=== PATIENT | male | born 1955 | race Hispanic/Latino ===

== ENCOUNTER 2019-03-13 08:14 | Outpatient (CLI) | payer BC | END 2019-03-13 08:15 | disposition home or self-care (01) | LOC: RAD 08:14 | DX: R10.9 Unspecified abdominal pain (principal); R91.1 Solitary pulmonary nodule ==

== ENCOUNTER 2019-03-14 12:24 | Observation (INO) | payer BC ==
[2019-03-14 12:33] VITALS: BMI 27.0
--- NOTE | 2019-03-14 13:16 | ED PDOC ---
Arrival/HPI - General Chief Complaint: Abnormal Labs Time Seen by Provider: 03/14/19 12:38 Historian: Patient, Spouse - History of Present Illness Time/Duration: > week Symptom Onset: Gradual Symptom Course: Resolved Severity Level: Mild Activities at Onset: Rest Associated Symptoms (Text): 03/14/19 13:13 Patient had lower abdominal pain last week after indulging in foods that he normally does not eat. He was seen by his PMD Dr. Banegas and sent for an outpatient CT scan of the chest abdomen and pelvis which he had yesterday. There was a right lower quadrant mass on the CT scan and the patient was directed to the emergency department today by Dr. Banegas. He reports that his symptoms have completely resolved. No abdominal pain nausea vomiting or diarrhea. He is not anorexic. No fever or chills. No cough congestion or URI. No weight loss. Past Medical History - Infectious Disease Hx of Infectious Diseases: None - Cardiac Hx CO: Yes (x 3 stents) Hx Hypertension: Yes - Pulmonary Other/Comment: heavy smoker - Neurological Hx Paralysis: No - Endocrine/Metabolic Hx Diabetes Mellitus Type 2: Yes - Hematological/Oncological Hx Blood Transfusions: No - Musculoskeletal/Rheumatological Hx Arthritis: Yes - Psychiatric Hx Emotional Abuse: No Hx Physical Abuse: No Hx Substance Use: No - Surgical History Hx Cardiac Catheterization: Yes Other/Comment: cardiac cath x 3 stents - Anesthesia Hx Anesthesia Reactions: No Hx Malignant Hyperthermia: No - Suicidal Assessment Feels Threatened In Home Enviroment: No Family/Social History - Physician Review Nursing Documentation Reviewed: Yes Family/Social History: Unknown Family HX Smoking Status: Heavy Smoker > 10 Cigarettes Daily Hx Alcohol Use: No Hx Substance Use: No Allergies/Home Meds Allergies/Adverse Reactions: Allergies No Known Allergies Allergy (Verified 03/14/19 12:33) Home Medications: Home Meds Medication Instructions Recorded Confirmed Atorvastatin [Lipitor] 40 mg PO DAILY 12/18/14 01/26/17 Aspirin [Adult Low Dose Aspirin EC] 81 mg PO DAILY 01/07/16 01/26/17 Dabigatran [Pradaxa] 150 mg PO DAILY 01/07/16 01/26/17 Metoprolol Succinate [Toprol Xl] 50 mg PO DAILY 01/07/16 01/26/17 MetFORMIN [glucOPHAGE] 1,000 mg PO BID 03/03/16 03/10/17 Clopidogrel [Plavix] 75 mg PO DAILY 01/22/16 01/22/16 SITagliptin [Januvia] 50 mg PO BID 01/26/17 01/26/17 Review of Systems - Physician Review All systems were reviewed & negative as marked: Yes - Review of Systems Constitutional: absent: Fatigue, Fevers Respiratory: absent: SOB, Cough, Wheezing Cardiovascular: absent: Chest Pain, Palpitations, Syncope Gastrointestinal: absent: Abdominal Pain, Constipation, Diarrhea, Nausea, Vomiting, Hematochezia, Hematemesis, Anorexia Genitourinary Male: absent: Dysuria, Frequency, Hematuria Neurological: absent: Headache, Dizziness, Focal Weakness Physical Exam Vital Signs Temp Pulse Resp BP Pulse Ox 03/14/19 12:35 98.3 F 69 18 196/104 H 98 Temperature: Afebrile Blood Pressure: Hypertensive Pulse: Regular Respiratory Rate: Normal Appearance: Positive for: Well-Appearing, Non-Toxic, Comfortable Pain Distress: None Mental Status: Positive for: Alert and Oriented X 3 - Systems Exam Head: Present: Atraumatic, Normocephalic Pupils: Present: PERRL Extroacular Muscles: Present: EOMI Conjunctiva: Present: Normal Mouth: Present: Moist Mucous Membranes Pharnyx: No: ERYTHEMA, EXUDATE, TONSILS ENLARGED Neck: Present: Normal Range of Motion Respiratory/Chest: Present: Clear to Auscultation, Good Air Exchange, Decreased Breath Sounds. No: Respiratory Distress, Accessory Muscle Use Cardiovascular: Present: Regular Rate and Rhythm, Normal S1, S2. No: Murmurs Abdomen: No: Tenderness, Distention, Peritoneal Signs, Rebound, Guarding Upper Extremity: Present: Normal Inspection. No: Cyanosis, Edema Lower Extremity: Present: Normal Inspection. No: Edema Neurological: Present: GCS=15, CN II-XII Intact, Speech Normal, Motor Func Grossly Intact Skin: Present: Warm, Dry, Normal Color. No: Rashes Psychiatric: Present: Alert, Oriented x 3, Normal Insight, Normal Concentration Medical Decision Making ED Course and Treatment: 03/14/19 13:[address] Banegas who reports that he sent the patient to the emergency department for admission and consultation with surgery infectious disease and pulmonary, all of which have been called for him. Disposition/Present on Arrival - Present on Arrival Any Indicators Present on Arrival: No History of DVT/PE: No History of Uncontrolled Diabetes: No Urinary Catheter: No History of Decub. Ulcer: No History Surgical Site Infection Following: None - Disposition Have Diagnosis and Disposition been Completed?: Yes Diagnosis: Right lower quadrant abdominal mass, Pneumonia, Hypertension Disposition: HOSPITALIZED Disposition Time: 13:57 Patient Plan: Observation Condition: GOOD
[2019-03-14 13:44] LABS: BASO # 0.08 K/mm3 (0.0-2.0); BASO % 1.1 % (0.0-3.0); EOS # 0.2 (0.0-0.7); EOS % 2.1 % (1.5-5.0); HEMOGLOBIN 15.1 g/dL (14.0-18.0); LYMPH # 2.2 (1.2-3.4); LYMPH % 30.2 % (22.0-35.0); MEAN CELL VOLUME 83.4 fl (80.0-105.0); MEAN CORPUSCULAR HEMOGLOBIN 28.2 pg (25.0-35.0); MEAN CORPUSCULAR HGB CONC 33.9 g/dl (31.0-37.0); MEAN PLATELET VOLUME 9.7 fl (7.0-11.0); MONO # 0.3 (0.1-0.6); MONO % 4.3 % (1.0-6.0); RBC 5.35 10^6/uL (3.5-6.1); WHITE BLOOD COUNT 7.2 10^3/uL (4.5-11.0)
[2019-03-14 13:53] LABS: ALB/GLOB RATIO 1.1 (1.1-1.8); ALBUMIN 4.2 g/dL (3.0-4.8); ALT/SGPT 28 U/L (7-56); AST/SGOT 21 U/L (17-59); BLOOD UREA NITROGEN 13 mg/dL (7-21); CALCIUM 9.9 mg/dL (8.4-10.5); GFR NON-AFRICAN AMERICAN > 60
[2019-03-14 14:04] LABS: TROPONIN I < 0.01 ng/mL
[2019-03-14 15:00] VITALS: O2SAT 97
--- NOTE | 2019-03-14 15:25 | CARD ---
APPROVED REPORT Date of service: 03/14/2019 EKG Measurement Heart [id number] <Conclusion> Normal sinus rhythm Left axis deviation T Inversion I,AVL,V5,V6 Correlate Clinically. Abnormal ECG
--- NOTE | 2019-03-14 15:39 | CP.PCM.CON ---
History of Present Illness - History of Present Illness History of Present Illness: General Surgery Consult Note for Dr. Nile Philip, PGY1 Reason for consult: RLQ mass This is a 63 year old male with PMH of HTN, HLD, CAD, NIDDM, NE, PTCA s/p 3 stents presenting to the hospital on recommendation by PMD for abnormal CT scan. 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 Patient states he was lifting heavy object two weeks ago and subsequently developed abdominal pain which lasted 3-4 days. Patient was seen by PMD at that time and had CTAP done earlier this week. Patient endorses loose stools over the last 3 days due to decreased appetite. He says he had colonoscopy approximately [address] Goodwin in [place] and was normal as per patient. Patient currently denies CP, SOB, fevers, chills, nausea, vomiting, numbness, tingling, swelling, weakness, back pain, abdominal pain, constipation, urinary complaints, hematuria, hematochezia, recent travel, recent sickness, and recent weight loss. 12 point ROS noted here, otherwise unremarkable. PMD: Dr. Banegas PMH: HTN, HLD, CAD, NIDDM, NE, PTCA s/p 3 stents on aspirin Sx: PTCA s/p 3 stents in 2009 Social: active smoker of 1/2 ppd for 40 years. Denies drug/alcohol use FH: CAD All: denies Past Patient History - Infectious Disease Hx of Infectious Diseases: None - Past Social History Smoking Status: Heavy Smoker > 10 Cigarettes Daily - CARDIAC Hx Heart Attack: Yes (x 3 stents) Hx Hypertension: Yes - PULMONARY Other/Comment: heavy smoker - NEUROLOGICAL Hx Paralysis: No - ENDOCRINE/METABOLIC Hx Diabetes Mellitus Type 2: Yes - HEMATOLOGICAL/ONCOLOGICAL Hx Blood Transfusions: No - MUSCULOSKELETAL/RHEUMATOLOGICAL Hx Arthritis: Yes - PSYCHIATRIC Hx Emotional Abuse: No Hx Physical Abuse: No Hx Substance Use: No - SURGICAL HISTORY Hx Cardiac Catheterization: Yes Other/Comment: cardiac cath x 3 stents - ANESTHESIA Hx Anesthesia Reactions: No Hx Malignant Hyperthermia: No Meds Allergies/Adverse Reactions: Allergies Allergy/AdvReac Type Severity Reaction Status Date / Time No Known Allergies Allergy Verified 03/14/19 16:04 Physical Exam - Constitutional Appears: Non-toxic, No Acute Distress - Head Exam Head Exam: ATRAUMATIC, NORMAL INSPECTION - Eye Exam Eye Exam: EOMI Pupil Exam: PERRL - ENT Exam ENT Exam: Mucous Membranes Moist - Neck Exam Neck exam: Positive for: Normal Inspection - Respiratory Exam Respiratory Exam: Clear to Auscultation Bilateral. absent: Accessory Muscle Use, Wheezes, Respiratory Distress - Cardiovascular Exam Cardiovascular Exam: +S1, +S2. absent: Tachycardia - GI/Abdominal Exam GI & Abdominal Exam: Normal Bowel Sounds, Soft. absent: Firm, Guarding, Mass, Rebound, Rigid, Tenderness Additional comments: Negative McBurney point tenderness globular abdomen - Extremities Exam Extremities exam: Positive for: normal inspection. Negative for: calf tenderness, tenderness - Back Exam Back exam: NORMAL INSPECTION - Neurological Exam Neurological exam: Alert, Oriented x3 - Psychiatric Exam Psychiatric exam: Normal Affect, Normal Mood - Skin Skin Exam: Normal Color, Warm Results - Vital Signs Recent Vital Signs: Last Vital Signs Temp 98.3 F 03/14/19 12:35 Pulse 64 03/14/19 14:59 Resp 18 03/14/19 14:59 BP 174/88 H 03/14/19 14:59 Pulse Ox 97 03/14/19 14:59 - Labs Result Diagrams: 03/14/19 13:31 03/14/19 13:31 Labs: Laboratory Results - last 24 hr 03/14/19 03/14/19 13:31 13:31 WBC 7.2 RBC 5.35 Hgb 15.1 Hct 44.6 MCV 83.4 MCH 28.2 MCHC 33.9 RDW 13.0 Plt Count 337 MPV 9.7 Neut % (Auto) 62.3 Lymph % (Auto) 30.2 [place] % (Auto) 4.3 Eos % (Auto) 2.1 Baso % (Auto) 1.1 Lymph # (Auto) 2.2 [place] # (Auto) 0.3 Eos # (Auto) 0.2 Baso # (Auto) 0.08 Absolute Neuts (auto) 4.50 Sodium 137 Potassium 4.9 Chloride 96 L Carbon Dioxide 33 Anion Gap 13 BUN 13 Creatinine 0.8 Est GFR ( Amer) > 60 Est GFR (Non-Af Amer) > 60 Random Glucose 208 H Calcium 9.9 Magnesium 1.9 Total Bilirubin 0.3 AST 21 ALT 28 Alkaline Phosphatase 92 Lactate Dehydrogenase 311 L Total Creatine Kinase 39 Troponin I < 0.01 Total Protein 8.1 Albumin 4.2 Globulin 3.8 Albumin/Globulin Ratio 1.1 Assessment & Plan - Assessment and Plan (Free Text) Assessment: This is a 63 year old male presenting to the hospital for abnormal CT abd/pelvis findings concerning for RLQ mass. 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 Dowd
[2019-03-14] MEDS ORDERED: Azithromycin 500MG/NS 250ml 500 MG/250 ML BAG IVPB SCH (15:45)
[2019-03-14] MEDS ORDERED: cefTRIAXone 1 gm 1 GM/100 ML BAG IVPB SCH (15:45)
[2019-03-14] MEDS ORDERED: Pneumococcal 23-Valent Vaccine IM ONE (18:32)
[2019-03-14] MEDS: Albuterol-Ipratrop 3 mg / 0.5 (3 ml) UD IH SCH (20:14)
[2019-03-14] MEDS: Insulin Reg-MEDIUM-Coverage SC SCH (22:08)
[2019-03-15] MEDS: Albuterol-Ipratrop 3 mg / 0.5 (3 ml) UD IH SCH ×2 (01:29→08:19)
--- NOTE | 2019-03-15 01:33 | HP ---
DATE OF EXAM: 03/14/2019 HISTORY OF PRESENT ILLNESS: I saw Mr. Haque in my office. He did not feel well. I did a CT scan of the chest, abdomen and pelvis. I was looking for a cancer. He has been not feeling well, losing some weight. His CT scan came back with a multifocal pneumonia in both lungs, also a right lower quadrant mass around the appendix, which could be cancer. He was not feeling well so he had come to the emergency room. He is being admitted for IV antibiotics for the pneumonia and evaluation of the right lower quadrant mass. He is a 63-year-old white man, not feeling well, had abdominal pain after indulging in a lot of bad foods, also had some lifting of things that were around the house. He has a right lower quadrant mass, multifocal pneumonia. PAST MEDICAL HISTORY: He has a history of OR and three stents, hypertension. He has got diabetes. SOCIAL HISTORY: He is a heavy, heavy smoker. ALLERGIES: NO KNOWN DRUG ALLERGIES. CURRENT MEDICATIONS: He takes Lipitor, aspirin, Pradaxa, metoprolol, Glucophage, Plavix and Januvia. REVIEW OF SYSTEMS: A little bit tired. No fevers. He is coughing. No shortness of breath or wheezing. He did have right lower quadrant pain but that kind of subsided. No constipation, diarrhea, nausea or vomiting. No blood. No problems urinating. No headache or dizziness. PHYSICAL EXAMINATION VITAL SIGNS: He has 98.3 temperature, 69 pulse, 18 respiratory rate, 196/104 blood pressure, which is kind high for him, I am not sure if he took his medications or not, and 98% O2 sat. GENERAL: He is well-appearing, nontoxic, comfortable. Alert and oriented x3. HEENT: Head is atraumatic, normocephalic. Extraocular muscles are intact. The throat is dry, a little bit red. NECK: Supple. No JVD. LUNGS: Decreased breath sounds bilaterally. Congestion in his cough, smokers cough for sure. HEART: Regular rate. Normal S1, S2. ABDOMEN: Soft, nontender, positive bowel sounds. No guarding, no rebound or CVA tenderness even though the right lower quadrant is soft. No palpable mass. EXTREMITIES: He has got a low edema of the lower extremities. NEUROLOGIC: GCS is 15. Cranial nerves II through XII grossly intact. Speech is normal. Alert and oriented x3. SKIN: Poor turgor, but warm and dry. LYMPHATICS: Thyroid midline. No palpable appreciable lymphadenopathy. LABORATORY DATA: A CT scan of the outpatient showed a right lower quadrant abdominal mass. ASSESSMENT AND PLAN: He has multifocal pneumonia, he has hypertension, he is a diabetic. He will have consults with Surgery, Infectious Disease and Pulmonary. Hopefully will improve quickly. Rc Banegas DO
[2019-03-15 07:25] LABS: HEMOGLOBIN 14.8 g/dL (14.0-18.0); MEAN CELL VOLUME 83.7 fl (80.0-105.0); MEAN CORPUSCULAR HEMOGLOBIN 27.4 pg (25.0-35.0); MEAN CORPUSCULAR HGB CONC 32.7 g/dl (31.0-37.0); MEAN PLATELET VOLUME 10.3 fl (7.0-11.0); RBC 5.4 10^6/uL (3.5-6.1); RED CELL DISTRIBUTION WIDTH 13.1 % (11.5-14.5); WHITE BLOOD COUNT 7.7 10^3/uL (4.5-11.0)
[2019-03-15 07:41] LABS: ALBUMIN 3.7 g/dL (3.0-4.8); ALT/SGPT 20 U/L (7-56); AST/SGOT 19 U/L (17-59); BLOOD UREA NITROGEN 13 mg/dL (7-21); CALCIUM 9.1 mg/dL (8.4-10.5); GFR NON-AFRICAN AMERICAN > 60
[2019-03-15 08:10] VITALS: PULSE 66; RESP 19; TEMP 98
[2019-03-15] MEDS: Insulin Reg-MEDIUM-Coverage SC SCH (08:10)
--- NOTE | 2019-03-15 08:15 | CP.PCM.PN ---
Subjective - Date & Time of Evaluation Date of Evaluation: 03/15/19 Time of Evaluation: 07:00 - Subjective Subjective: GENERAL SURGERY PROGRESS NOTE FOR DR. FRIAS Patient seen and examined at bedside. He denies abdominal pain. He is tolerating diet, denies nausea or vomiting. He had some diarrhea last night. He is asking when he can go home. Objective - Vital Signs/Intake and Output Vital Signs (last 24 hours): Temp Pulse Resp BP Pulse Ox 98.0 F 66 19 162/82 H 97 03/15/19 06:00 03/15/19 06:00 03/15/19 06:00 03/15/19 06:00 03/15/19 06:00 Intake and Output: 03/15/19 03/15/19 06:59 18:59 Intake Total 1020 Output Total 500 Balance 520 - Medications Medications: Current Medications Albuterol/Ipratropium (Duoneb 3 Mg/0.5 Mg (3 Ml) Ud) 3 ml IH [id number] [facility] Last Admin: 03/15/19 01:29 Dose: Not Given Amlodipine Besylate (Norvasc) 2.5 mg PO DAILY [facility] Aspirin (Ecotrin) 81 mg PO DAILY [facility] Atorvastatin Calcium (Lipitor) 40 mg PO DAILY [facility] Dabigatran (Pradaxa) 150 mg PO BID [facility]; Protocol Ceftriaxone Sodium (Rocephin 1 Gram Ivpb) 1 gm in 100 mls @ 100 mls/hr IVPB D AILY [facility]; Protocol Azithromycin (Zithromax 500mg In Ns) 500 mg in 250 mls @ 167 mls/hr IVPB DAILY [facility]; Protocol Insulin Human Regular (Humulin R Med) 0 units SC ACHS [facility]; Protocol Last Admin: 03/15/19 08:10 Dose: Not Given Metformin HCl (Glucophage) 1,000 mg PO BID [facility] Metoprolol Succinate (Toprol Xl) 50 mg PO DAILY [facility] Nicotine (Nicoderm Cq) 1 patch TD DAILY [facility] Last Admin: 03/14/19 18:49 Dose: Not Given Sitagliptin Phosphate (Januvia) 50 mg PO BID [facility] - Labs Labs: 03/15/19 06:30 03/15/19 06:30 - Constitutional Appears: Non-toxic, No Acute Distress - Head Exam Head Exam: ATRAUMATIC, NORMAL INSPECTION - Eye Exam Eye Exam: EOMI, Normal appearance - Respiratory Exam Respiratory Exam: NORMAL BREATHING PATTERN. absent: Respiratory Distress - Cardiovascular Exam Cardiovascular Exam: +S1, +S2 - GI/Abdominal Exam GI & Abdominal Exam: Soft. absent: Distended, Firm, Guarding, Rigid, Tenderness, Rebound - Neurological Exam Neurological Exam: Alert, Awake, Oriented x3 - Psychiatric Exam Psychiatric exam: Normal Affect, Normal Mood - Skin Skin Exam: Normal Color, Warm Assessment and Plan - Assessment and Plan (Free Text) Assessment: 63 year old male with PMHx of HTN, HLD, CAD, DM, OR s/p stents who has abnormal CT abd/pelvis findings concerning for RLQ mass. Possible appendiceal carcinoma vs walled off appendiceal abscess. 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 Nile Rincon PGY-4
[2019-03-15 08:20] LABS: URINE BILIRUBIN NEGATIVE (NEGATIVE); URINE BLOOD NEGATIVE (NEGATIVE); URINE GLUCOSE (UA) NEGATIVE (NEGATIVE); URINE LEUKOCYTE ESTERASE NEGATIVE Leu/uL (NEGATIVE); URINE PROTEIN NEGATIVE mg/dL (<30 mg/dL); URINE UROBILINOGEN 0.2 E.U./dL (<1 E.U./dL)
[2019-03-15 08:23] LABS: URINE APPEARANCE CLEAR (CLEAR); URINE COLOR YELLOW (YELLOW)
[2019-03-15] MEDS ORDERED: Metoprolol Succinate 50 mg XL Tab PO SCH (10:00)
[2019-03-15 10:08] VITALS: BP 158/82
--- NOTE | 2019-03-15 18:01 | CON ---
DATE: 03/15/2019 LOCATION: The patient is seen earlier today in room 366, bed 1. CHIEF COMPLAINT: The patient is seen earlier this morning, no complaints. He states that he had a CAT scan findings and that is why he has been admitted. HISTORY OF PRESENT ILLNESS: This is a 63-year-old male with diabetes mellitus, coronary artery disease, myocardial infarction, hyperlipidemia, hypertension, history of cardiac cath stent placement, colonoscopy 6 years ago, which was negative by Dr. Goodwin. HE HAS NO KNOWN ALLERGIES. Had a CAT scan as an outpatient, which showed an abdominal mass, also found multifocal pneumonia and thus referred to the emergency room and was admitted. The patient has no fevers, no chills. Has no cough, no shortness of breath, no pulmonary symptoms. REVIEW OF SYSTEMS: Reveals the patient's 12-point review of systems is performed. PAST MEDICAL HISTORY: Significant for diabetes, coronary artery disease, myocardial infarction, hyperlipidemia and hypertension. PAST SURGICAL HISTORY: Significant for cardiac catheterization with stent placement, colonoscopy 6 years ago which at that time was negative by Dr. Goodwin. ALLERGIES: THE PATIENT HAS NO KNOWN ALLERGIES. SOCIAL HISTORY: He is a heavy smoker. MEDICATIONS AT HOME: Include insulin, Glucophage, Pradaxa, aspirin and Lipitor. PHYSICAL EXAMINATION GENERAL: The patient is in bed, no acute distress, answering questions. VITAL SIGNS: He is nontoxic with a temperature of 98, blood pressure is 160/80, respiratory rate of 18, and heart rate of 66. HEENT: Unremarkable. NECK: Supple. LUNGS: Decreased breath sounds. HEART: Normal S1 and S2. ABDOMEN: Soft and nontender. LABORATORY DATA: Reveals a white count of 7.4, hemoglobin of 15 and platelets of 337. BUN of 13 and creatinine of 0.8. Urinalysis is noted. Serology, urine legionella antigen is negative. ASSESSMENT AND PLAN: This is a 63-year-old male with hypertension, hyperlipidemia, coronary artery disease, diabetes mellitus, myocardial infarction, percutaneous transluminal coronary angioplasty, stent placement, presenting to the hospital with abnormal CAT scan findings and multifocal pulmonary infiltrates and abdominal mass. He was started on Rocephin, Zithromax, and can continue the workup as outpatient. Continue the short course of Zithromax and case discussed with Dr. Rc Banegas, who is going to discharge the patient. The patient states that he will followup with primary and workup results. Wesley Ortiz MD
--- NOTE | 2019-03-16 04:27 | DS ---
HOSPITAL COURSE: I discussed this with the Infectious Disease. He has multifocal pneumonia. He could be discharged on a Z-Sha. He has a right lower quadrant mass, he will go for outpatient biopsy with Dr. Rito Chaves next week. He will home on his regular medications plus a Z-Sha. I will see him in the office next week. The patient understands that. PHYSICAL EXAMINATION: VITAL SIGNS: Temperature 98, pulse 66, blood pressure 158/82, respiratory rate 19, and O2 sat 97% on room air. HEENT: Head is atraumatic and normocephalic. HEART: Regular rate. LUNGS: Decreased breath sounds, but clear. ABDOMEN: Soft. EXTREMITIES: No edema. LABORATORY DATA: White count 7.7, hemoglobin 14.8, hematocrit 45.2 and platelets 297. Sodium 139, potassium 4.2, BUN is 30, creatinine 0.7, GFR greater than 60, sugar is 158, calcium 9.1, total bili is 0.3, AST is 19, ALT is 20 and alk phos 79. Troponin I is less than 0.01. Total protein 7.3. Urine was clean. He had an outpatient CAT scan showing multifocal pneumonia right lower quadrant mass, was sent to the emergency room. He is stable. He will be discharged. He is changed to observation of the outpatient. Z-Sha for the multifocal pneumonia and outpatient biopsy of the right lower quadrant abdominal mass. He also was told to quit smoking that is more important than anything else and to call me if anything changes, I will see him next week in the office. Rc Banegas DO
== END 2019-03-15 12:43 | disposition home or self-care (01) ==
LOC: ED 12:24 → ERH 13:36 → 3RNO 15:35 → INTOOBSV 15:53 → OBSVTOIN 15:53
PROVIDERS: ADMIT Family Medicine; ATTEND Family Medicine
DX: J18.9 Pneumonia, unspecified organism (principal); R19.03 Right lower quadrant abdominal swelling, mass and lump; E11.9 Type 2 diabetes mellitus without complications; E78.5 Hyperlipidemia, unspecified; F17.200 Nicotine dependence, unspecified, uncomplicated; I10 Essential (primary) hypertension; I25.2 Old myocardial infarction; I25.10 Atherosclerotic heart disease of native coronary artery without angina pectoris; X50.0XXA Overexertion from strenuous movement or load, initial encounter; Z79.02 Long term (current) use of antithrombotics/antiplatelets; Z79.82 Long term (current) use of aspirin; Z98.61 Coronary angioplasty status
CPT/HCPCS: 36415; 80053; 81003; 82550; 82948; 83615; 83735; 84145; 84484; 85025; 85027; 87040; 87081; 87086; 87389; 87449; 93005; 94640; 96365; 99283; G0378; J0696

== ENCOUNTER 2019-04-07 05:45 | Outpatient (CLI) | payer BC | END 2019-04-07 05:46 | disposition home or self-care (01) | LOC: CARDIO 05:45 | DX: I25.10 Atherosclerotic heart disease of native coronary artery without angina pectoris (principal) ==